=== PATIENT | male | born 1965 | race American Indian/Alaskan Native ===

== ENCOUNTER 2017-04-13 18:37 | Emergency (ER) | payer OTHER ==
[~2017-04-13] VITALS: Ht 185.4 cm; Wt 81.6 kg
== END 2017-04-13 20:29 | disposition home or self-care (01) ==
LOC: ED 18:37
DX: M25.522 Pain in left elbow (principal); M70.32 Other bursitis of elbow, left elbow
CPT/HCPCS: 96372; 99283; J0696

== ENCOUNTER 2017-08-18 06:42 | Emergency (ER) | payer OTHER ==
[~2017-08-18] VITALS: Ht 185.4 cm; Wt 83.9 kg
== END 2017-08-18 07:52 | disposition home or self-care (01) ==
LOC: ED 06:42
DX: M51.86 Other intervertebral disc disorders, lumbar region (principal); M54.5 Low back pain; V89.2XXA Person injured in unspecified motor-vehicle accident, traffic, initial encounter
CPT/HCPCS: 96372; 99282; J2360

== ENCOUNTER 2018-03-20 22:47 | Emergency (ER) | payer OTHER ==
[~2018-03-20] VITALS: Ht 185.4 cm; Wt 87.5 kg
[2018-03-20 22:54] VITALS: BP 145/88; TEMP 98.8
[2018-03-20] MEDS ORDERED: OXYC10TA3 PO (22:56)
[2018-03-20] MEDS ORDERED: IBUPROFEN200 M1 PO (22:56)
== END 2018-03-21 00:43 | disposition home or self-care (01) ==
LOC: ED 22:47
PROC: 2W3JX1Z Immobilization of Right Finger using Splint (ICD-10-PCS; principal; 2018-03-20)
DX: S62.606A Fracture of unspecified phalanx of right little finger, initial encounter for closed fracture (principal); W18.39XA Other fall on same level, initial encounter; Y92.89 Other specified places as the place of occurrence of the external cause
CPT/HCPCS: 99283

== ENCOUNTER 2018-11-26 16:05 | Outpatient (CLI) | payer OTHER ==
[~2018-11-26 16:05] MED LIST: IBUPROFEN200 M1 PO; OXYC10TA3 PO
[2018-11-26 16:57] LABS: PLATELET COUNT 278 K/uL (142-355)
[2018-11-26 17:14] LABS: POTASSIUM 3.4 mmol/L (3.6-5.2)
== END 2018-11-26 19:59 | disposition home or self-care (01) ==
LOC: LAB 16:05
PROVIDERS: Surgery Plastic and Reconstructive Surgery
DX: M51.36 Other intervertebral disc degeneration, lumbar region (principal)
CPT/HCPCS: 36415; 80053; 83036; 84153; 84403; 85027

== ENCOUNTER 2019-03-27 22:26 | Emergency (ER) | payer OTHER ==
[~2019-03-27] VITALS: Ht 185.4 cm; Wt 86.2 kg
[2019-03-27 22:30] VITALS: BP 155/92; TEMP 98.1
== END 2019-03-27 23:20 | disposition home or self-care (01) ==
LOC: ED 22:26
DX: S50.362A Insect bite (nonvenomous) of left elbow, initial encounter (principal); L03.114 Cellulitis of left upper limb; W57.XXXA Bitten or stung by nonvenomous insect and other nonvenomous arthropods, initial encounter; Y93.89 Activity, other specified; Y92.89 Other specified places as the place of occurrence of the external cause
CPT/HCPCS: 96372; 99283; J1885

== ENCOUNTER 2020-10-08 09:19 | Outpatient (CLI) | payer OTHER | END 2020-10-08 19:16 | disposition home or self-care (01) | LOC: MRI 09:19 | PROVIDERS: ATTEND Surgery Plastic and Reconstructive Surgery | DX: M51.36 Other intervertebral disc degeneration, lumbar region (principal) ==

== ENCOUNTER 2021-07-22 10:34 | Outpatient (CLI) | payer OTHER | END 2021-07-22 21:48 | disposition home or self-care (01) | LOC: RESP 10:34 | PROVIDERS: ATTEND Nurse Practitioner Primary Care | DX: Z13.6 Encounter for screening for cardiovascular disorders (principal) ==

== ENCOUNTER 2022-02-11 20:15 | Emergency (ER) | payer OTHER ==
[~2022-02-11] VITALS: Ht 185.4 cm; Wt 90.7 kg
[2022-02-11 21:25] VITALS: BP 133/89; TEMP 98.7
== END 2022-02-11 21:25 | disposition home or self-care (01) ==
LOC: ED 20:15
DX: J06.9 Acute upper respiratory infection, unspecified (principal); R09.81 Nasal congestion
CPT/HCPCS: 96372; 99283; J0696; J1100

== ENCOUNTER 2022-07-01 22:11 | Emergency (ER) | payer OTHER ==
[~2022-07-01] VITALS: Ht 185.4 cm; Wt 90.7 kg
[2022-07-01 22:20] VITALS: BP 145/90; TEMP 98.2
[2022-07-01 23:00] LABS: PLATELET COUNT 310 K/uL (142-355)
[2022-07-01 23:10] LABS: POTASSIUM 3.5 mmol/L (3.6-5.2)
== END 2022-07-02 00:12 | disposition home or self-care (01) ==
LOC: ED 22:11
PROVIDERS: Family Medicine
DX: E87.6 Hypokalemia (principal); J20.8 Acute bronchitis due to other specified organisms; Z20.822 Contact with and (suspected) exposure to COVID-19
CPT/HCPCS: 36415; 80053; 85027; 87502; 87635; 96360; 96374; 96375; 99284; J1885; J2930; U0003

== ENCOUNTER 2023-02-24 08:22 | Outpatient (CLI) | payer OTHER | END 2023-02-24 19:05 | disposition home or self-care (01) | LOC: US 08:22 | PROVIDERS: ATTEND Nurse Practitioner Primary Care | DX: R94.6 Abnormal results of thyroid function studies (principal); E07.89 Other specified disorders of thyroid ==